=== PATIENT | female | born 1970 | race Caucasian/White ===

== ENCOUNTER 2016-12-19 20:05 | Emergency (ER) | payer SELFPAY ==
[2016-12-19 20:17] VITALS: BP 154/90; PULSE 94; RESP 16; TEMP 99.3; O2SAT 95
[2016-12-19] MEDS ORDERED: DEXAMETHASONE 10 MG/ML VIAL IVP ONE (21:44)
--- NOTE | 2016-12-19 21:48 | UCPHY ---
H & P Time Seen by Provider: 12/19/16 21:32 Patient Type: Established HPI/ROS: CHIEF COMPLAINT: Sore throat HISTORY OF PRESENT ILLNESS: Patient is a 46-year-old female who developed a sore throat earlier today. She went saw her primary care physician. She had a negative strep screen. She was started on azithromycin is taking the 1st dose. She has no pain medication or steroid. She feels as though there are knife this in my throat. Her pain is moderate to severe. She feels as though she has difficulty swallowing due to the swelling. No cough or shortness of breath. No fevers or chills. No flank pain or abdominal pain. REVIEW OF SYSTEMS: My complete review of systems is negative except as mentioned in the HPI. Past Medical/Surgical History: Includes asthma This social history: The patient does not smoke Smoking Status: Never smoked Physical Exam: 37.4, 154/90, 94, 16, 95% on room air GENERAL: No acute distress, alert. HEENT: Eyes normal to inspection, no signs of dehydration. Patient has mild pharyngeal erythema. This is diffuse. There is mild pharyngeal swelling with mild uvular swelling. Uvula is midline. There is no asymmetry. No visible mass. NECK: No thyromegaly, mild bilateral anterior lymphadenopathy, supple. RESPIRATORY: Clear to auscultation bilaterally, no rales, rhonchi or wheezing. CVS: Regular rate and rhythm, no rubs, murmurs, or gallops. ABDOMEN: Soft, nontender, no organomegaly. SKIN: Normal color, no rash, warm, dry. No pallor. EXTREMITIES: Normal NEURO/PSYCH: Alert and oriented, normal mood and affect Constitutional: Initial Vital Signs Temperature (C) 37.4 C 12/19/16 20:13 Heart Rate 94 12/19/16 20:13 Respiratory Rate 16 12/19/16 20:13 Blood Pressure 154/90 H 12/19/16 20:13 O2 Sat (%) 95 12/19/16 20:13 O2 Delivery Mode Room Air Allergies/Adverse Reactions: aspirin Allergy (Verified 09/18/13 16:50) Penicillins Allergy (Verified 09/18/13 16:50) Home Medications: Medication Instructions Recorded Azithromycin 12/19/16 Dexamethasone [Decadron 4 MG (*)] 8 mg PO DAILY 2 Days 12/19/16 oxyCODONE/APAP 5/325 [Percocet 1 - 2 tab PO Q4PRN PRN #9 tab 12/19/16 5/325 (*)] Medical Decision Making ED Course/Re-evaluation: In urgent care discussed etiologies of the patient's symptoms. She was given dexamethasone 10 mg orally (this was the liquid formulation). I rechecked the patient on numerous occasions while here. She improved during his stay. 2044: The patient requested discharge home. On recheck she has no airway compromise. She is improving. She is given warnings prior to leaving. She will return with worsening symptoms. She is aware she needs to complete her entire course of antibiotics. She was given a prescription for dexamethasone upon discharge. She was also given a prescription for pain medication. Differential Diagnosis: Differential includes but is not limited to pharyngitis, epiglottitis, tracheitis, peritonsillar abscess, retropharyngeal abscess, dehydration, airway compromise - Data Points Medications Given: Discontinued Medications Dexamethasone (Decadron Injection) 10 mg IVP EDNOW ONE Stop: 12/19/16 21:45 Last Admin: 12/19/16 21:55 Dose: 10 mg Ondansetron HCl (Zofran Odt) 4 mg PO EDNOW ONE Stop: 12/19/16 22:16 Last Admin: 12/19/16 22:17 Dose: 4 mg Oxycodone/Acetaminophen (Percocet 5/325) 2 tab PO EDNOW ONE Stop: 12/19/16 21:51 Last Admin: 12/19/16 22:15 Dose: Not Given Departure - Departure Disposition: Home, Routine, Self-Care Clinical Impression: Pharyngitis Qualifiers: Pharyngitis/tonsillitis etiology: unspecified etiology Qualifier Code: (J02.9) Acute pharyngitis, unspecified Condition: Good Instructions: Pharyngitis (ED) Additional Instructions: Return with increasing swelling, pain, shortness of breath or any other concerns. Referrals: Mackenzie Blankenship MD [Primary Care Provider] - 1-2 days without fail Prescriptions: Dexamethasone [Decadron 4 MG (*)] 8 mg PO DAILY 2 Days oxyCODONE/APAP 5/325 [Percocet 5/325 (*)] 1 - 2 tab PO Q4PRN PRN #9 tab PRN Reason: For Moderate To Severe Pain - PQRS PQRS Measurement: My PQRS negative my PQRS negative my PQRS negative my PQRS negative 134: Depression screening and followup, PRIME MD-PHQ2 (12 years and older) Over the last 2 weeks, how often have you been bothered by any of the following problems? 1. Feeling down, depressed, or hopeless? 2. Little interest or pleasure in doing things? Patient answered no to both 1 and 2 130: Documentation of medications. Reviewed all patient medications, doses, route and frequency. 226: Do you smoke? No.
[2016-12-19] MEDS ORDERED: OXYCODONE/APAP 5/325MG PREPACK#4 BTL TAKEHOME ONE (21:50)
[2016-12-19] MEDS ORDERED: OXYCODONE/APAP 5/325 TAB PO ONE (21:50)
[2016-12-19] MEDS ORDERED: ONDANSETRON DISINTEGRATING 4 MG TAB ONE (22:11)
[2016-12-19] MEDS ORDERED: HYDROCOD/APAP 7.5/325 IN 15ML UDCUP ONE (22:11)
[2016-12-19] MEDS ORDERED: ONDANSETRON DISINTEGRATING 4 MG TAB PO ONE (22:15)
[2016-12-19] MEDS ORDERED: HYDROCOD/APAP 7.5/325 IN 15ML UDCUP PO ONE (22:16)
== END 2016-12-19 22:57 | disposition home or self-care (01) ==
LOC: CED 20:05
DX: J02.9 Acute pharyngitis, unspecified (principal)
CPT/HCPCS: 99214-PO; G0463-PO

== ENCOUNTER → 2019-02-15 | Outpatient (CLI) | payer OTHER | LOC: CIMAGING 14:18 | PROVIDERS: ATTEND Family Medicine | DX: N92.1 Excessive and frequent menstruation with irregular cycle (principal); N92.6 Irregular menstruation, unspecified; B97.7 Papillomavirus as the cause of diseases classified elsewhere; D25.9 Leiomyoma of uterus, unspecified; N83.201 Unspecified ovarian cyst, right side | CPT/HCPCS: 76856-PO ==

== ENCOUNTER → 2019-02-15 | Outpatient (CLI) | payer OTHER | LOC: CIMAGING 14:06 | PROVIDERS: ATTEND Family Medicine | DX: N92.1 Excessive and frequent menstruation with irregular cycle (principal); Z53.9 Procedure and treatment not carried out, unspecified reason; N92.6 Irregular menstruation, unspecified; B97.7 Papillomavirus as the cause of diseases classified elsewhere ==

== ENCOUNTER → 2019-03-01 | Outpatient (CLI) | payer OTHER | LOC: BRMIMAGING 12:51 | PROVIDERS: ATTEND Family Medicine | DX: N63.11 Unspecified lump in the right breast, upper outer quadrant (principal) | CPT/HCPCS: 76641-PO ==